=== PATIENT | female | born 2000 | race Caucasian/White ===

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

== ENCOUNTER 2022-08-09 09:52 | Emergency (ER) | payer MEDICAID ==
[~2022-08-09] VITALS: Ht 165.1 cm; Wt 53.2 kg
[2022-08-09 09:55] VITALS: BP 112/75
[2022-08-09] MEDS ORDERED: dexamethasone sod phosphate 10mg/ml inj PO STA (11:01)
[2022-08-09] MEDS ORDERED: AMOX-117 PO (11:01)
== END 2022-08-09 11:17 | disposition home or self-care (01) ==
LOC: ER 09:52
DX: J04.0 Acute laryngitis (principal); F17.200 Nicotine dependence, unspecified, uncomplicated; J45.909 Unspecified asthma, uncomplicated; F31.9 Bipolar disorder, unspecified; F12.10 Cannabis abuse, uncomplicated
CPT/HCPCS: 87081; 87880; 99283; J1100